=== PATIENT | female | born 1950 | race Caucasian/White ===

== ENCOUNTER 2021-03-02 14:16 | Observation (INO) | payer OTHER ==
--- OUTSIDE RECORDS SUMMARY | 2021-03-02 14:19 | XMS REPORT | Continuity of Care Document ---
:1950 Author Organization [facility] t Address [address] [place] [address] Care Team Providers Name Role Phone Brody Shay MD Attending Clinician Jos Talbot MD Attending Clinician Doctor Unassigned, [place] Attending Clinician Unavailable Only, Test Attending Clinician Unavailable Antione LOONEY Admitting Clinician Problems This patient has no known problems. Allergies, Adverse Reactions, Alerts This patient has no known allergies or adverse reactions. Medications This patient has no known medications. Procedures This patient has no known procedures. Encounters Start End Encounter Admission Attending Care Care Encounter Source Date/Time Date/Time Type Type Clinicians Facility Department ID 2021-01-24 2021-01-30 [facility] Brody Shay [facility] 1.2.840.1 [id number] 13:00:00 13:05:00 Encounter Jos Talbot [id number] [place] [id number] [place] [id number] 2020-11-30 2020-11-30 Orders Doctor BRITO [id number] 00:00:00 00:00:00 Only UnassKATIE reeder [id number] [place] [id number] 2020-10-15 2020-10-15 Orders Doctor BRITO [id number] [id number] 00:00:00 00:00:00 Only Unassigned, KATIE [id number] [place] [facility] [id number] 2020-06-14 2020-06-14 Orders Doctor BRITO Matt.[id number] 00:00:00 00:00:00 Only Unassigned, KATIE [id number] [place] [facility] [id number] [id number] 2020-05-28 2020-05-28 Laboratory Only, Adc [facility] 1.2.840.114 [id number] 07:54:50 10:28:19 Only Test [place] [id number] [place] [id number] [place] [id number] 2020-05-27 2020-05-27 Orders Doctor BRITO 1.2.840.114 [id number] 00:00:00 00:00:00 Only Unassigned, KATIE [id number] [place] [facility] [id number] 2020-05-18 2020-05-18 Orders Doctor BRITO 1.2.840.114 [id number] 00:00:00 00:00:00 Only Unassigned, KATIE [id number] [place] [facility] [id number] [id number] 2020-05-04 2020-05-04 Orders Doctor BRITO 1.2.840.114 [id number] 19 00:00:00 00:00:00 Only Unassigned, KATIE [id number] [place] [facility] [id number] 2020-04-16 2020-04-16 Orders Doctor ALISHA Gutierrez.2.840.114 [id number] 00:00:00 00:00:00 Only Unassigned, KATIE [id number] [place] [place] [facility] [id number] [id number] [id number] 2020-03-15 2020-03-15 Orders Doctor ALISHA Gutierrez.2.840.114 [id number] 27 00:00:00 00:00:00 Only Unassigned, KATIE [id number] [place] [facility] [id number] [id number] 2020-01-20 2020-01-20 Orders Doctor ALISHA 1.2.840.114 [id number] 25 00:00:00 00:00:00 [id number] [id number] [id number] 2019-07-16 2019-07-16 Orders Doctor ALISHA Matt.2.840.114 [id number] 19 00:00:00 00:00:[address]IE [id number] [facility] [id number] [id number] Results This patient has no known results.
--- NOTE | 2021-03-02 15:07 | RAD REPORT ---
EXAM DESCRIPTION: CT - Head Brain Wo Cont - 03/02/2021 2:52 pm CLINICAL HISTORY: weakness RUE COMPARISON: No comparisons TECHNIQUE: Axial 5 mm thick images of the head were obtained without IV contrast. All CT scans are performed using dose optimization technique as appropriate and may include automated exposure control or mA/KV adjustment according to patient size. FINDINGS: No intracranial hemorrhage is present. There is no mass effect, edema or shift of midline structures. No acute cortical based infarction identified. No cortical edema or sulcal effacement hammad ntifiable. Atrophy changes are present. Ventricles are prominent and may be slightly out of proportio n to the amount of volume loss. The left lateral ventricle trigone and occipital horn are enlarged re lative to the right. This is typically a normal anatomic variant. No abnormal extra-axial fluid collections. Chronic ischemic changes are present in the cerebral rebeca spheres and extending into each thalamus and basal ganglia region. Findings are more pronounced in th e left and include the left-side internal capsule. Given the history of right upper extremity weaknes s, subacute infarction is certainly possible. Mastoid air cells and visualized portions of the paranasal sinuses are clear. No acute bony findings. Patient has a prominent but normal variant hyperostosis frontalis interna pat tern. IMPRESSION: No intracranial hemorrhage or mass lesions seen. No acute cortical infarction identified . Atrophy and chronic ischemic changes are present. Ventricles are slightly out of proportion to the am ount of volume loss and correlation can be made with any normal pressure hydrocephalus findings. Asymmetric chronic ischemic pattern extending into the left-side basal ganglia and thalamus. This wou ld incorporate the posterior limb internal capsule. Subacute nonhemorrhagic CVA in the posterior echevarria b internal capsule region on the left could explain right upper extremity weakness. If medical management would be altered, MR imaging could be performed to more sensitively assess for CVA.
[2021-03-02 15:23] LABS: Absolute Lymphocytes (CBC) 1.2 K/uL (0.7-4.9); Basophils % 1.1 % (0-1.3); Hematocrit 27.4 % (36.0-45.0); MPV 9.1 fL (7.6-11.3); RBC Red Blood Cell Count 2.76 M/uL (3.86-4.86)
[2021-03-02 15:36] LABS: Potassium 4.4 mmol/L (3.5-5.1)
--- NOTE | 2021-03-02 16:17 | ER ---
Nurse's Notes [facility] Name: Alfreda Walters Age: 71 yrs Sex: Female : 1950 Arrival Date: 03/02/2021 Time: 14:17 Bed 8 Private MD: Diagnosis: Weakness;Cerebral infarction Presentation: 03/02 14:18 Chief complaint: EMS states: "[facility] nurse reporting pt having some left sided jd3 leg and arm weakness since last night. pt reporting pain to left leg as well.". Coronavirus screen: At this time, the client does not indicate any symptoms associated with coronavirus-19. Ebola Screen: Patient negative for fever greater than or equal to 101.5 degrees Fahrenheit, and additional compatible Ebola Virus Disease symptoms. Initial Sepsis Screen: Does the patient meet any 2 criteria? No. Patient's initial sepsis screen is negative. Does the patient have a suspected source of infection? No. Patient's initial sepsis screen is negative. Risk Assessment: Do you want to hurt yourself or someone else? Patient reports no desire to harm self or others. Onset of symptoms was March 01, 2021. 14:18 Method Of Arrival: EMS: [facility] jd3 14:18 Acuity: KATHY 2 jd3 14:35 Care prior to arrival: IV initiated. 20 GA, in the left hand. Transition of care: jd3 patient was received from another setting of care (long-term care facility), [facility]. Historical: - Allergies: 14:27 No Known Allergies; jd3 - PMHx: 15:56 COPD; epilepsy; Hypertension; CHF; Dementia; Alzheimers; Hypothyroidism; Atrial Fib; jd3 lymphedema; Anemia; cardiomegaly; Osteoporosis; - Immunization history:: Adult Immunizations unknown. - Social history:: Smoking status: unknown. - Family history:: not pertinent. - Hospitalizations: : No recent hospitalization is reported. Screenin:30 Abuse screen: Denies threats or abuse. Nutritional screening: No deficits noted. jd3 Tuberculosis screening: No symptoms or risk factors identified. VAN Screening: Arm Drift: Patient shows no arm weakness. Patient is VAN negative. Fall Risk IV access (20 points). Ambulatory Aid- None/Bed Rest/Nurse Assist (0 pts). Gait- Weak (10 pts.). Mental Status- Overestimates/Forgets Limitations (15 pts.). Total Vázquez Fall Scale indicates Low Risk Score (25-44 pts). Fall prevention measures have been instituted. Side Rails Up X 2 Placed close to Nursing Station Frequent Obs/Assesments occuring Family Present and informed to notify staff if they need to leave bedside. Assessment: 14:28 General: Appears in no apparent distress. comfortable, Behavior is calm, cooperative. jd3 Pain: Complains of pain in right leg Quality of pain is described as aching. Neuro: Level of Consciousness is awake, alert, obeys commands, confused, Oriented to person, place, Reports numbness in right hand and right leg since yesterday evening. Cardiovascular: Denies chest pain, Capillary refill < 3 seconds Patient's skin is warm and dry. Respiratory: Airway is patent Respiratory effort is even, unlabored, Respiratory pattern is regular, symmetrical. GI: No signs and/or symptoms were reported involving the gastrointestinal system. : No signs and/or symptoms were reported regarding the genitourinary system. EENT: No signs and/or symptoms were reported regarding the EENT system. Derm: Skin is intact, Skin is dry, Skin is normal, Skin temperature is warm. Musculoskeletal: Circulation, motion, and sensation intact. 15:15 Reassessment: Patient appears in no apparent distress at this time. No changes from jd3 previously documented assessment. Patient and/or family updated on plan of care and expected duration. Pain level reassessed. 16:27 Reassessment: Patient appears in no apparent distress at this time. No changes from jd3 previously documented assessment. Patient and/or family updated on plan of care and expected duration. Pain level reassessed. 17:18 Reassessment: Pt is back from MRI at this time. ss 18:09 Reassessment: Patient appears in no apparent distress at this time. No changes from jd3 previously documented assessment. Patient and/or family updated on plan of care and expected duration. Pain level reassessed. pt back from MRI, awaiting admission. 20:50 Reassessment: hospitalist informed patient having sacral pressure ulcer abscess on the rr5 left groin area draining yellowish fluid discharge. Vital Signs: 14:27 BP 124 / 83; Pulse 77; Resp 17 S; Temp 98.2(O); Pulse Ox 99% on R/A; Weight 90.72 kg jd3 (R); Height 5 ft. 5 in. (165.10 cm) (R); Pain 3/10; 15:16 BP 147 / 80; Pulse 79; Resp 17 S; Pulse Ox 99% on R/A; jd3 16:27 BP 158 / 85; Pulse 73; Resp 17 S; Pulse Ox 98% on R/A; jd3 18:10 BP 149 / 83; Pulse 75; Resp 16 S; Pulse Ox 100% on R/A; jd3 14:27 Body Mass Index 33.28 (90.72 kg, 165.10 cm) jd3 ED Course: 14:17 Patient arrived in ED. am2 14:17 Reddy Og, DENI is Primary Nurse. jd3 14:18 Giancarlo Brock MD is Attending Physician. rn 14:23 Triage completed. jd3 14:28 Arm band placed on. jd3 14:31 Patient has correct armband on for positive identification. Bed in low position. Call jd3 light in reach. Side rails up X2. quality assurance monitor final on. Pulse ox on. NIBP on. 14:52 CT Head Brain wo Cont In Process Unspecified. EDMS 15:12 Inserted saline lock: 20 gauge in right antecubital area, using aseptic technique. jd3 Blood collected. 16:16 Sabrina Garsia MD is Hospitalizing Provider. rn 16:40 Brain Wo Cont MRI In Process Unspecified. EDMS 19:50 Urine collected: straight cath specimen, clear. Straight cath inserted, using sterile rr5 technique, 16 Fr. Specimen obtained. 20:16 First set of blood cultures drawn by lab staff. Second set of blood cultures drawn by rr5 lab staff. 23:02 No provider procedures requiring assistance completed. Patient admitted, IV remains in rr5 place. intact, No redness/swelling at site. Administered Medications: 19:00 Dru mg of (foLIC Acid 1 mg, NS 0.9% 50 ml) Route: IVPB; Site: left hand; rr5 19:30 Follow up: Response: No adverse reaction; IV Status: Completed infusion; IV Intake: [id number] Intake: 19:30 IV: 50ml; Total: 50ml. rr5 Outcome: 16:17 Decision to Hospitalize by Provider. rn 23:02 Admitted to Med/surg accompanied by tech, via stretcher, room 212, with chart, Report rr5 called to nicholas 23:02 Condition: stable 23:02 Instructed on the need for admit. 23:03 Patient left the ED. rr5 Signatures: Dispatcher [employer] Giancarlo Pierce MD MD rn Smirch, Shelby, RN RN ss Moreno, Amanda am2 Davies, Jonathon, RN RN jd3 Angelo Mann RN RN rr5 Corrections: (The following items were deleted from the chart) 15:16 15:15 Reassessment: Patient appears in no apparent distress at this time. Patient jd3 and/or family updated on plan of care and expected duration. Pain level reassessed. Patient is alert, oriented x 3, equal unlabored respirations, skin warm/dry/pink. jd3
--- NOTE | 2021-03-02 16:17 | EDPHYS ---
Physician Documentation [facility] Name: Alfreda Walters Age: 71 yrs Sex: Female : 1950 Arrival Date: 03/02/2021 Time: 14:17 Bed 8 Private MD: ED Physician Giancarlo Brock HPI: 03/02 14:21 This 71 yrs old Female presents to ER via Unassigned with complaints of rn Numbness - right upper extremity. 14:21 The patient's problem is reported as weakness, in the right upper extremity. Onset: The rn symptoms/episode began/occurred yesterday. Duration: This was a single incident. Context: occurred at a jail or assisted living facility. The symptoms are alleviated by nothing. The symptoms are aggravated by nothing. Associated signs and symptoms: Pertinent negatives: abdominal pain, chest pain, confusion, seizure. Severity of symptoms: At their worst the symptoms were moderate in the emergency department the symptoms are unchanged. The patient has not experienced similar symptoms in the past. The patient has not recently seen a physician. Per report from jail, + right arm/wrist weakness, began yesterday, no known trauma, not improved today, hx of CVA in past. Pt reports only feels like right hand/wrist is weak, unable to lift it, but able to grasp and move hand downward. Reports RLE pain but no increased weakness. Per report, not ambulatory. . Historical: - Allergies: 14:27 No Known Allergies; jd3 - PMHx: 15:56 COPD; epilepsy; Hypertension; CHF; Dementia; Alzheimers; Hypothyroidism; Atrial Fib; jd3 lymphedema; Anemia; cardiomegaly; Osteoporosis; - Immunization history:: Adult Immunizations unknown. - Social history:: Smoking status: unknown. - Family history:: not pertinent. - Hospitalizations: : No recent hospitalization is reported. ROS: 14:21 Constitutional: Negative for fever, chills, and weight loss, Eyes: Negative for injury, rn pain, redness, and discharge, Neck: Negative for injury, pain, and swelling, Cardiovascular: Negative for chest pain, palpitations, and edema, Respiratory: Negative for shortness of breath, cough, wheezing, and pleuritic chest pain, Abdomen/GI: Negative for abdominal pain, nausea, vomiting, diarrhea, and constipation, Back: Negative for injury and pain, MS/Extremity: + weakness right wrist/hand Skin: Negative for injury, rash, and discoloration, Neuro: + weakness right wrist/hand Exam: 14:21 Constitutional: This is a well developed, well nourished patient who is awake, alert, rn and in no acute distress. Head/Face: Normocephalic, atraumatic. Eyes: Pupils equal round and reactive to light, extra-ocular motions intact. Cardiovascular: Regular rate and rhythm. No pulse deficits. Respiratory: No increased work of breathing, no retractions or nasal flaring. Abdomen/GI: soft, non-tender Skin: Warm, dry MS/ Extremity: Pulses equal, no cyanosis. + bilateral lower ext swelling and lymphedema with bilateral weakness. Neuro: Awake and alert, GCS 15, oriented to person, place, and situation. Moderate dysphasia, but able to comprehend some of her speech. unable to dorsiflex right wrist, but normal strength of right shoulder and elbow. Sensory grossly intact. Vital Signs: 14:27 BP 124 / 83; Pulse 77; Resp 17 S; Temp 98.2(O); Pulse Ox 99% on R/A; Weight 90.72 kg jd3 (R); Height 5 ft. 5 in. (165.10 cm) (R); Pain 3/10; 15:16 BP 147 / 80; Pulse 79; Resp 17 S; Pulse Ox 99% on R/A; jd3 16:27 BP 158 / 85; Pulse 73; Resp 17 S; Pulse Ox 98% on R/A; jd3 18:10 BP 149 / 83; Pulse 75; Resp 16 S; Pulse Ox 100% on R/A; jd3 14:27 Body Mass Index 33.28 (90.72 kg, 165.10 cm) jd3 MDM: 14:18 Patient medically screened. rn 16:14 Differential diagnosis: CVA, TIA, metabolic disorder, wrist drop, UTI, dehydration. rn Data reviewed: vital signs, nurses notes, lab test result(s), EKG, radiologic studies, CT scan, and as a result, I will admit patient. Counseling: I had a detailed discussion with the patient and/or guardian regarding: the historical points, exam findings, and any diagnostic results supporting the discharge/admit diagnosis, lab results, radiology results, the need for further work-up and treatment in the hospital. Response to treatment: There is no appreciated change of the patient's symptoms at this time, and as a result, I will admit patient. Admission orders: after a detailed discussion of the patient's condition and case, the admit orders are written by me. ED course: CT shows chronic ischemic changes and possible CVA left internal capsule that could explain RUE weakness. Will admit for further w/u and MRI.. 03/02 14:20 Order name: CBC with Diff; Complete Time: 16:10 rn 03/02 14:20 Order name: Basic Metabolic Panel; Complete Time: 16:10 rn 03/02 14:20 Order name: Procalcitonin; Complete Time: 16:10 rn 03/02 16:13 Order name: Urine Microscopic Only rn 03/02 16:13 Order name: Blood Culture Adult (2) rn 03/02 16:45 Order name: Comprehensive Metabolic Panel EDMS 03/02 16:45 Order name: Comprehensive Metabolic Panel EDMS 03/02 16:45 Order name: Lipid Profile EDMS 03/02 16:45 Order name: Lipid Profile EDMS 03/02 16:45 Order name: Magnesium EDMS 03/02 16:45 Order name: Magnesium EDMS 03/02 16:45 Order name: Phosphorus EDMS 03/02 16:45 Order name: Phosphorus EDMS 03/02 16:45 Order name: T4 Free EDMS 03/02 14:19 Order name: CT Head Brain wo Cont; Complete Time: 16:10 rn 03/02 14:57 Order name: Brain Wo Cont MRI rn 03/02 16:45 Order name: T4 Free EDMS 03/02 16:45 Order name: Thyroid Stimulating Hormone EDMS 03/02 16:45 Order name: Thyroid Stimulating Hormone EDMS 03/02 16:46 Order name: Echo with Doppler EDMS 03/02 16:46 Order name: CBC with Automated Diff EDMS 03/02 16:46 Order name: CBC with Automated Diff EDMS 03/02 16:46 Order name: Chest Pa And Lat (2 Views) EDMS 03/02 17:23 Order name: RAD EDMS 03/02 18:39 Order name: COVID-19 : Document "Date of Symptom Onset" if Symptomatic. bd 03/02 19:49 Order name: CORONAVIRUS EDMS 03/02 20:04 Order name: Urine Dipstick-Ancillary EDMS 03/02 20:29 Order name: SARS-COV-2 RT PCR EDNE 03/02 22:12 Order name: Glucose, Ancillary Testing EDNE 03/02 14:20 Order name: IV Start; Complete Time: 15:12 rn 03/02 14:20 Order name: EKG; Complete Time: 14:21 rn 03/02 14:20 Order name: EKG - Nurse/Tech; Complete Time: 15:12 rn 03/02 16:13 Order name: Urine Dipstick-Ancillary (obtain specimen); Complete Time: 20:16 rn 03/02 16:44 Order name: NPO [facility]NE 03/02 16:45 Order name: Physical Therapy Consult [facility] 03/02 16:45 Order name: NPO [facility] 03/02 16:45 Order name: NPO [facility] 03/02 16:46 Order name: Speech Therapy Consult [facility] 03/02 16:46 Order name: EKG Electrocardiogram [facility]NE 03/02 20:16 Order name: Straight Cath - Urine; Complete Time: 20:16 rr5 Administered Medications: 19:00 Dru mg of (foLIC Acid 1 mg, NS 0.9% 50 ml) Route: IVPB; Site: left hand; rr5 19:30 Follow up: Response: No adverse reaction; IV Status: Completed infusion; IV Intake: [id number] Disposition: 03/02/21 16:17 Hospitalization ordered by Sabrina Garsia for Observation. Preliminary diagnosis are Weakness, Cerebral infarction. - Bed requested for Telemetry/MedSurg (observation). - Status is Observation. rr5 - Condition is Stable. - Problem is new. - Symptoms are unchanged. Signatures: Dispatcher [employer] [facility] Romelia Smith bd Paula Tellez RN RN dw Nieto, Roman, MD MD rn Davies, Jonathon, RN RN jd3 Roque, Raymond RN RN rr5 Corrections: (The following items were deleted from the chart) 16:57 16:46 Stroke Protocol ordered. [facility] 17:20 16:17 Hospitalization Ordered by Sabrina Garsia MD for Observation. Preliminary bd diagnosis is Weakness; Cerebral infarction. Bed requested for Telemetry/MedSurg (observation). Status is Observation. Condition is Stable. Problem is new. Symptoms are unchanged. rn 21:51 17:20 03/02/2021 16:17 Hospitalization Ordered by Sabrina Garsia MD for Observation. dw Preliminary diagnosis is Weakness; Cerebral infarction. Bed requested for [facility] ER HOLD. Status is Observation. Condition is Stable. Problem is new. Symptoms are unchanged. bd 23:03 21:51 03/02/2021 16:17 Hospitalization Ordered by Sabrina Garsia MD for Observation. rr5 Preliminary diagnosis is Weakness; Cerebral infarction. Bed requested for Telemetry/MedSurg (observation). Status is Observation. Condition is Stable. Problem is new. Symptoms are unchanged. dw
[2021-03-02] MEDS ORDERED: ACETAMINOPHEN 500 MG TAB PO PRN (16:41)
[2021-03-02] MEDS ORDERED: ONDANSETRON 4 MG/2 ML VIAL IV PRN (16:41)
[2021-03-02] MEDS: NA CHLORIDE 0.9% 1,000 ML IV SCH (17:00)
--- NOTE | 2021-03-02 17:16 | RAD REPORT ---
EXAM DESCRIPTION: MRI - Brain Wo Cont - 03/02/2021 5:03 pm CLINICAL HISTORY: WEAKNESS COMPARISON: Head Brain Wo Cont dated 03/02/2021 TECHNIQUE: Sagittal T1-weighted images were obtained along with axial PD, heavily T2-weighted and T2 -FLAIR images. Axial DWI and ADC mapping sequences were also obtained along with coronal heavily T2-w eighted images. FINDINGS: Motion degraded study shows no intracranial hemorrhage, mass or acute infarction. There is no edema or shift of midline structures. No extra-axial fluid collections. Lawler-matter/white matter junction is preserved. Signal voids are seen as a normal finding in the major intracranial vessels. Atrophy changes are present. Ventricles remain slightly out of proportion to the amount of volume los s. Left lateral ventricle enlargement is more pronounced in the trigone and occipital horn region. Th ere is no transependymal migration of CSF. This is probably normal variant rather than normal pressur e hydrocephalus. Patient does have chronic ischemic change in the cerebral white matter extending into each basal gang santos region. Chronic ischemic changes more prominent in the left basal ganglia region. Mastoid air cells and paranasal sinuses are clear. IMPRESSION: No acute or subacute infarction changes identified. No mass, hemorrhage or acute intracr anial finding. Asymmetric chronic ischemic changes are present more prominent in the left basal ganglia and thalamus region. Atrophy changes are present. Ventricles are slightly out of proportion with the left lateral ventricl e enlarged relative to the right. This is favored to be developmental variant rather than normal pres sure hydrocephalus.
--- NOTE | 2021-03-02 17:22 | RAD REPORT ---
EXAM DESCRIPTION: RAD - Chest Single View - 03/02/2021 5:16 pm CLINICAL HISTORY: Stroke COMPARISON: None TECHNIQUE: AP portable chest image was obtained 03/02/2021 5:16 pm . FINDINGS: Lungs appear fibrotic without peripheral mass or consolidation. No significant failure or volume overload identified. Cardiomegaly is present without abnormal vascular engorgement. No measura ble pleural effusion and no pneumothorax. Osteopenic and degenerative bony changes are present. No ac telida aortic findings suspected. IMPRESSION: Fibrosis and cardiomegaly. No failure, volume overload or focal lung parenchymal process seen.
[2021-03-02] MEDS ORDERED: FOLIC ACID 5 MG/ML VIAL ONE (19:41)
[2021-03-02] MEDS ORDERED: NA CHLORIDE 0.9% 50 ML ONE (19:47)
[2021-03-02 20:03] LABS: Urine Blood Negative (Negative); Urine Glucose Negative (Negative); Urine Protein Negative (Negative); Urine Specific Gravity 1.015 (1.005-1.030)
[2021-03-02] MEDS ORDERED: ATORVASTATIN 20 MG TAB ONE (20:15)
[2021-03-02] MEDS ORDERED: NA CHLORIDE 0.9% 1,000 ML ONE (20:15)
[2021-03-02] MEDS ORDERED: ATORVASTATIN 20 MG TAB PO SCH (21:00)
[2021-03-02 21:22] LABS: Urine Bacteria <20 /HPF (<20); Urine RBC <5 /HPF (NONE SEEN)
[2021-03-03 00:38] VITALS: BMI 30.9
[2021-03-03 03:22] VITALS: O2SAT 97
[2021-03-03 06:07] LABS: Absolute Lymphocytes (CBC) 1.3 K/uL (0.7-4.9); Basophils % 0.3 % (0-1.3); Hematocrit 25.5 % (36.0-45.0); Lymphocytes % 10.6 % (15.3-44.8); MPV 9.2 fL (7.6-11.3)
[2021-03-03] MEDS: NA CHLORIDE 0.9% 1,000 ML IV SCH ×2 (06:20→08:17)
[2021-03-03 06:30] LABS: Albumin 2.2 g/dL (3.4-5.0); Bilirubin Total 0.2 mg/dL (0.2-1.0); Magnesium 2.3 mg/dL (1.8-2.4); Phosphorus 2.9 mg/dL (2.5-4.9); Potassium 4.2 mmol/L (3.5-5.1); Protein, Total 6.6 g/dL (6.4-8.2); Thyroid Stimulating Hormone 1.93 uIU/mL (0.360-3.740)
--- NOTE | 2021-03-03 08:51 | EKG ---
Test Date: 2021-03-02 Test Time: 15:00:46 Floor Refinisher: JULIO CÉSAR MEASUREMENT RESULTS: Intervals: Rate: 78 [place]: QRSD: 84 QT: 306 QTc: 348 [place]: P: [place]: QRS: 29 T: 210 INTERPRETIVE STATEMENTS: Atrial fibrillation with premature ventricular or aberrantly conducted complexes Posterior infarct, age undetermined ST & T wave abnormality, consider inferolateral ischemia or digitalis effect Abnormal ECG No previous ECG available for comparison Electronically Signed On 03-03-21 08:48:41 CDT by Yariel Contreras
[2021-03-03] MEDS ORDERED: ASPIRIN EC 81 MG TAB PO SCH (09:00)
[2021-03-03] MEDS ORDERED: D5 0.45 NS 1,000 ML IV SCH (09:00)
[2021-03-03] MEDS ORDERED: ENOXAPARIN 40 MG/0.4 ML SQ SCH (09:00)
[2021-03-03] MEDS ORDERED: CLOPIDOGREL 75 MG TABLET PO SCH (09:00)
--- NOTE | 2021-03-03 09:41 | P.HP ---
Certification for Inpatient Patient admitted to: Observation With expected LOS: <2 Midnights Patient will require the following post-hospital care: None Practitioner: I am a practitioner with admitting privileges, knowledge of patient current condition, hospital course, and medical plan of care. Services: Services provided to patient in accordance with Admission requirements found in Title 42 Section 412.3 of the Code of Federal Regulations Patient History Date of Service: 03/02/21 Reason for admission: Right-sided wrist drop History of Present Illness: Patient is a 71-year-old female who lives at a care home with a history of mental disability who came into the hospital with weakness of the right hand. She appears to have a wristdrop. She was initially admitted because they thought she may have had a stroke. She apparently is been acting a little differently at the care home and because of the wrist dropped a cinder into the ER. They deny any trauma to that area. Patient's family members are not aware of anything like this. Patient will be admitted for further evaluation. Allergies No Known Allergies Allergy (Unverified 03/02/21 22:04) Home Medications: Acetaminophen [Tylenol] 650 mg PO Q4HP PRN 03/03/21 Anusol-Hc 2.5% 1 appl TOP BID 03/03/21 Ascorbic Acid [Vitamin C] 500 mg PO BID 03/03/21 Calcium Carbonate/Vitamin D3 [Calcium 500 + Vit D Caplet] 1 each PO BID 03/03/21 Clonidine HCl [Catapres*] 0.2 mg PO Q6HP PRN 03/03/21 Codeine/APAP [Tylenol W/Codeine #3 tab] 1 tab PO DAILYPRN PRN 03/03/21 Codeine/APAP [Tylenol W/Codeine #3 tab] 1 tab PO Q12H 03/03/21 Collagenase [Santyl Ointment] 1 appl TP DAILY 03/03/21 Cyanocobalamin [Vitamin B-12] 1,000 mcg PO DAILY 03/03/21 Digoxin [Lanoxin] 0.125 mg PO DAILY 03/03/21 Divalproex Sodium 500 mg PO Q12H 03/03/21 Ergocalciferol (Vitamin D2) [Vitamin D2] 50,000 unit PO Q7D 03/03/21 Ferrous Sulfate [Feosol] 325 mg PO DAILY 03/03/21 Folic Acid 0.4 mg PO DAILY 03/03/21 Furosemide [Lasix] 80 mg PO BIDL 03/03/21 Guaifenesin/Dextromethorphan [Guaifenesin Dm Syrup] 5 ml PO Q4HP PRN 03/03/21 Levothyroxine [Synthroid] 50 mcg PO [id number] 03/03/21 Multivit-Min/Iron/Folic Acid/K [Multi-Day Plus Minerals Tablet] 1 each PO DAILY 03/03/21 Mupirocin Oint [Bactroban 2% Ointment] 1 appl TP DAILY 03/03/21 PHENobarbitaL [Phenobarbital*] 32.4 mg PO BID 03/03/21 Polyethyl Gly 3350 [Glycolax] 17 gm PO DAILY 03/03/21 Potassium Chloride 20 meq PO BID 03/03/21 Povidone-Iodine [Povidone-Iodine 10% Top Soln] 1 appl TP DAILY 03/03/21 Rivaroxaban [Xarelto] 15 mg PO BEDTIME 03/03/21 Sodium Hypochlorite [Dakin's] 1 appl TOP DAILY 03/03/21 Spironolactone [Aldactone] 50 mg PO BID 03/03/21 Zinc 50 mg PO DAILY 03/03/21 carvediloL [Carvedilol] 6.25 mg PO BID 03/03/21 lisinopriL [Lisinopril] 5 mg PO DAILY 03/03/21 - Past Medical/Surgical History -: Mental disability -: epilepsy -: hypertension -: atrial fibrilation -: lymphedema -: osteoporosis Past Surgical History: Unable to obtain - Family History Father Family History: Reviewed- Non-Contributory - Social History Smoking Status: Unknown if ever smoked Alcohol use: No CD- Drugs: No Review of Systems 10-point ROS is otherwise unremarkable Physical Examination - Vital Signs Temperature: 97.3 F Blood Pressure: 129/60 Pulse: 82 Respirations: 20 Pulse Ox (%): 96 - Physical Exam General: Alert, In no apparent distress, Other (Patient mentally disabled and not really able to answer question) HEENT: Atraumatic, PERRLA, Mucous membr. moist/pink, EOMI, Sclerae nonicteric Neck: Supple, 2+ carotid pulse no bruit, No LAD, Without JVD or thyroid abnormality Respiratory: Clear to auscultation bilaterally, Normal air movement Cardiovascular: Regular rate/rhythm, Normal S1 S2, Systolic murmur (2/6) Gastrointestinal: Normal bowel sounds, Soft and benign, Non-distended, No tenderness Musculoskeletal: No clubbing, No swelling, No tenderness, Other (Right wrist drop) Integumentary: No rashes, Other (Bilateral lower extremity edema from lymphedema) Neurological: Abnormal gait, Abnormal speech, Abnormal strength, Abnormal tone, Abnormal affect Lymphatics: No axilla or inguinal lymphadenopathy - Studies Laboratory Data (last 24 hrs) 03/02/21 15:09: Sodium 138, Potassium 4.4, BUN 34 H, Creatinine 1.26, Glucose 116 H 03/02/21 15:09: WBC 12.00 H, Hgb 9.1 L, Hct 27.4 L, Plt Count 195 Assessment & Plan - Problems (Diagnosis) (1) Wrist drop, right wrist Current Visit: Yes Status: Acute (2) Mental disability Current Visit: Yes Status: Acute (3) Atrial fibrillation Current Visit: Yes Status: Acute - Plan Plan: 1. MRI of the brain 2. Anti-platelet therapy 3. Patient may need a wrist splint 4. Continue home medications 5. Spoke with family who do not live in the area but they stated that patient has been medically disabled for many years now. This is been from child . She does not have a history of COPD per their recollection. She is being cared for until she got older and had to be placed at the care home. They do not recall her having a wrist drop. Will put a wrist splint on there and if MRI of the brain is negative she ought to be able to go back. Discharge Plan: Home Plan to discharge in: Greater than 2 days - Advance Directives Does patient have a Living Will: No Does patient have a Durable POA for Healthcare: No - Code Status/Comfort Care Code Status Assessed: Yes Code Status: Full Code Critical Care: No Time Spent Managing PTS Care (In Minutes): 45
--- NOTE | 2021-03-03 09:45 | P.DS ---
Discharge Date: 03/03/21 Disposition: ROUTINE DISCHARGE Discharge Condition: GOOD Reason for Admission: Right-sided wrist drop - Problems (1) Wrist drop, right wrist Status: Acute (2) Mental disability Status: Acute (3) Atrial fibrillation Status: Acute Brief History of Present Illness: Patient is a 71-year-old female who lives at a alf with a history of mental disability who came into the hospital with weakness of the right hand. She appears to have a wristdrop. She was initially admitted because they th ought she may have had a stroke. She apparently is been acting a little differently at the alf and because of the wrist dropped a cinder into the ER. They deny any trauma to that area. Patient's family members are not aware of anything like this. Patient will be admitted for further evaluation. Hospital Course: Patient had extensive workup performed. Essentially everything was unremarkable. Patient is clinically doing well. At this time, patient is stable for discharge home with outpatient follow up. Vital Signs/Physical Exam: Temp Pulse Resp BP Pulse Ox 97.3 F 82 20 129/60 96 03/03/21 09:41 03/03/21 09:41 03/03/21 09:41 03/03/21 09:41 03/03/21 09:41 General: Alert, In no apparent distress, Oriented x3 Laboratory Data at Discharge: WBC 12.00 K/uL (4.3-10.9) H 03/03/21 05:29 Hgb 8.6 g/dL (12.0-15.0) L 03/03/21 05:29 Hct 25.5 % (36.0-45.0) L 03/03/21 05:29 Plt Count 188 K/uL (152-406) 03/03/21 05:29 Sodium 142 mmol/L (136-145) 03/03/21 05:29 Potassium 4.2 mmol/L (3.5-5.1) 03/03/21 05:29 BUN 25 mg/dL (7-18) H 03/03/21 05:29 Creatinine 0.88 mg/dL (0.55-1.3) 03/03/21 05:29 Glucose 83 mg/dL (74-106) 03/03/21 05:29 Phosphorus 2.9 mg/dL (2.5-4.9) 03/03/21 05:29 Magnesium 2.3 mg/dL (1.8-2.4) 03/03/21 05:29 Total Bilirubin 0.2 mg/dL (0.2-1.0) 03/03/21 05:29 AST 11 U/L (15-37) L 03/03/21 05:29 ALT 11 U/L (12-78) L 03/03/21 05:29 Alkaline Phosphatase 82 U/L (45-117) 03/03/21 05:29 Triglycerides 98 mg/dL (<150) 03/03/21 05:29 Cholesterol 140 mg/dL (<200) 03/03/21 05:29 HDL Cholesterol 39 mg/dL (40-60) L 03/03/21 05:29 Cholesterol/HDL Ratio 3.59 03/03/21 05:29 Home Medications: Acetaminophen [Tylenol] 650 mg PO Q4HP PRN 03/03/21 Anusol-Hc 2.5% 1 appl TOP BID 03/03/21 Ascorbic Acid [Vitamin C*] 500 mg PO BID 03/03/21 Atorvastatin Calcium [Lipitor*] 40 mg PO BEDTIME #30 tab 03/03/21 Calcium Carbonate/Vitamin D3 [Calcium 500-Vit D3 125 Caplet] 1 each PO BID 03/03/21 Clonidine HCl [Catapres*] 0.2 mg PO Q6HP PRN 03/03/21 Codeine/APAP [Tylenol #3*] 1 tab PO DAILYPRN PRN 03/03/21 Collagenase [Santyl Ointment*] 1 appl TP DAILY 03/03/21 Cyanocobalamin [Vitamin B-12*] 1,000 mcg PO DAILY 03/03/21 Digoxin [Lanoxin*] 0.125 mg PO DAILY 03/03/21 Divalproex Sodium 500 mg PO Q12H 03/03/21 Ergocalciferol (Vitamin D2) [Vitamin D2] 50,000 unit PO Q7D 03/03/21 Ferrous Sulfate [Ferrous Sulfate*] 325 mg PO DAILY 03/03/21 Folic Acid 0.4 mg PO DAILY 03/03/21 Furosemide [Lasix*] 80 mg PO BIDL 03/03/21 Guaifenesin/Dextromethorphan [Guaifenesin Dm Syrup] 5 ml PO Q4HP PRN 03/03/21 Levothyroxine [Synthroid*] 50 mcg PO [id number] 03/03/21 Multivit-Min/Iron/Folic Acid/K [Multi-Day Plus Minerals Tablet] 1 each PO DAILY 03/03/21 Mupirocin Oint [Bactroban 2% Ointment*] 1 appl TP DAILY 03/03/21 PHENobarbitaL [Phenobarbital*] 32.4 mg PO BID 03/03/21 Polyethyl Gly 3350 [Glycolax*] 17 gm PO DAILY 03/03/21 Potassium Chloride 20 meq PO BID 03/03/21 Povidone-Iodine [Betadine Top Soln *] 1 appl TP DAILY 03/03/21 Rivaroxaban [Xarelto*] 15 mg PO BEDTIME 03/03/21 Sodium Hypochlorite [Dakin's] 1 appl TOP DAILY 03/03/21 Spironolactone [Aldactone] 50 mg PO BID 03/03/21 Zinc 50 mg PO DAILY 03/03/21 carvediloL [Carvedilol] 6.25 mg PO BID 03/03/21 New Medications: Atorvastatin Calcium [Lipitor*] 40 mg PO BEDTIME #30 tab Physician Discharge Instructions: OK TO DC IV AND DC HOME FOLLOW-UP WITH PRIMARY CARE PROVIDER IN 1-2 WEEKS FOLLOW-UP WITH Neurology in 1-2 WEEKS RETURN TO THE ER IF symptoms worsen CALL or TEXT DR. DORSEY AT [phone] IF ANY QUESTIONS REGARDING HOSPITAL STAY. PLEASE CALL THE FLOOR AT [phone] IF ANY MEDICATION OR NURSING QUESTIONS. Diet: AHA Activity: Fall precautions Followup: NONE,NONE [Primary Care Provider] - Time spent managing pt's care (in minutes): 35
[2021-03-03 13:35] VITALS: BP 145/71; TEMP 98
== END 2021-03-03 13:52 | disposition home or self-care (01) ==
LOC: ER 14:16 → INTOOBSV 16:41 → ERHOLD 16:41 → 2ND 22:57
PROVIDERS: ADMIT Hospitalist; ATTEND Hospitalist
DX: M21.331 Wrist drop, right wrist (principal); I48.91 Unspecified atrial fibrillation; F79 Unspecified intellectual disabilities; R53.1 Weakness; G40.909 Epilepsy, unspecified, not intractable, without status epilepticus; I11.0 Hypertensive heart disease with heart failure; I50.9 Heart failure, unspecified; I89.0 Lymphedema, not elsewhere classified; G30.9 Alzheimer's disease, unspecified; F02.80 Dementia in other diseases classified elsewhere, unspecified severity, without behavioral disturbance, psychotic disturbance, mood disturbance, and anxiety; M81.0 Age-related osteoporosis without current pathological fracture; E03.9 Hypothyroidism, unspecified; D64.9 Anemia, unspecified; I51.7 Cardiomegaly; Z79.01 Long term (current) use of anticoagulants; Z20.822 Contact with and (suspected) exposure to COVID-19
CPT/HCPCS: 96365; 93005; 87040 ×2; 87070 ×2; 85025 ×2; 80048; 36415; 83735; 87205 ×2; 84100; 80061; 82947 ×4; 84443; 87077 ×2; 87186 ×2; 84439; 80053; 84145; 70450; 71045; 70551; 92610; 97161; 51702; 99285; U0003; Q9967; J1650; J7799; J7030 ×2; G0378 ×3; 81003; 81015